=== PATIENT | female | born 1950 | race Caucasian/White ===

== ENCOUNTER 2016-06-20 09:49 | Outpatient (RCR) | payer OTHER | END 2016-08-10 13:03 | disposition home or self-care (01) | LOC: PT 09:49 | DX: M15.0 Primary generalized (osteo)arthritis (principal) ==

== ENCOUNTER 2017-10-15 15:04 | Emergency (ER) | payer MEDICARE, MEDICAID ==
[~2017-10-15] VITALS: Ht 160 cm; Wt 77.3 kg
[2017-10-15] MEDS ORDERED: ENALAPRIL20 MG PO (15:13)
[2017-10-15] MEDS ORDERED: FENOFIBRATE48 MG PO (15:13)
[2017-10-15] MEDS ORDERED: ASPIR LOW81 MG PO (15:13)
[2017-10-15] MEDS ORDERED: CELECOXIB100 M1 PO (15:13)
[2017-10-15] MEDS ORDERED: PROAIR HFA0.09 MG/AC IH (15:13)
[2017-10-15] MEDS ORDERED: SINGULAIR 110 MG/TAB PO (15:15)
[2017-10-15] MEDS ORDERED: MAGNESIUM CHELA27 MG (15:15)
[2017-10-15] MEDS ORDERED: OMEPRAZOLE D/R20 MG PO (15:15)
[2017-10-15] MEDS ORDERED: MIRTAZAPINE30 MG PO (15:15)
[2017-10-15] MEDS ORDERED: HYDROCHLOROTH12.5 M2 PO (15:16)
[2017-10-15] MEDS ORDERED: LISINOPRIL20 MG PO (15:16)
[2017-10-15 15:57] LABS: EOS # 0.1 (0.04-0.40); EOS % 0.7 % (1.0-5.0); HEMOGLOBIN 13.9 g/dL (12.5-16.0); LYMPH# 2.9 (1.50-4.00); MEAN CELL VOLUME 88 fl (78-100); MEAN CORPUSCULAR HEMOGLOBIN 29 pg (27-31); MEAN CORPUSCULAR HGB CONC 33 g/dL (33-37); MONO # 1.2 (0.20-0.80); NEU # 7.8 (1.40-6.50); PLATELET COUNT 358 K/mm3 (130-400); RED CELL DISTRIBUTION WIDTH 14.2 % (11.5-14.5)
[2017-10-15 16:09] LABS: BUN/CREATININE RATIO 10.1 (6.0-26.0); CALCIUM 9.1 mg/dL (8.4-10.2); POTASSIUM 3.8 mmol/L (3.6-5.0)
[2017-10-15] MEDS ORDERED: NORCO 325 MG-51 TA1 PO (16:23)
[2017-10-15 16:52] VITALS: BP 153/99
[2017-10-15 17:01] LABS: ERYTHROCYTE SEDIMENTATION RATE 31 mm/hr (0-30)
== END 2017-10-15 16:50 | disposition home or self-care (01) ==
LOC: ED 15:04
PROVIDERS: Family Medicine
DX: M10.072 Idiopathic gout, left ankle and foot (principal); I10 Essential (primary) hypertension; F17.200 Nicotine dependence, unspecified, uncomplicated; Z79.82 Long term (current) use of aspirin; Z79.899 Other long term (current) drug therapy
CPT/HCPCS: J1040

== ENCOUNTER → 2020-10-27 | Outpatient (CLI) | payer MEDICARE, MEDICAID ==
[~2020-10-27] MED LIST: ASPIR LOW81 MG PO; CELECOXIB100 M1 PO; ENALAPRIL20 MG PO; FENOFIBRATE48 MG PO; HYDROCHLOROTH12.5 M2 PO; LISINOPRIL20 MG PO; MAGNESIUM CHELA27 MG; MIRTAZAPINE30 MG PO; NORCO 325 MG-51 TA1 PO; OMEPRAZOLE D/R20 MG PO; PROAIR HFA0.09 MG/AC IH; SINGULAIR 110 MG/TAB PO
== END ==
LOC: RAD 15:19
DX: I82.402 Acute embolism and thrombosis of unspecified deep veins of left lower extremity (principal)